=== PATIENT | female | born 1980 | race Hispanic/Latino ===

== ENCOUNTER 2020-12-17 03:34 | Emergency (ER) | payer MEDICAID, OTHER ==
[~2020-12-17] VITALS: Ht 152.4 cm; Wt 68.0 kg
[2020-12-17 03:43] VITALS: BP 134/95
[2020-12-17 07:24] VITALS: BP 150/91
[2020-12-17] MEDS ORDERED: BUDE10.26 IH (08:15)
[2020-12-17] MEDS ORDERED: ALBUHFA IH (08:15)
== END 2020-12-17 07:36 | disposition home or self-care (01) ==
LOC: EDH 03:34
DX: U07.1 COVID-19 (principal); J06.9 Acute upper respiratory infection, unspecified; K21.9 Gastro-esophageal reflux disease without esophagitis
CPT/HCPCS: 87635; 87804; 87880